=== PATIENT | female | born 1985 | race Caucasian/White ===

== ENCOUNTER 2016-11-17 19:56 | Inpatient (IN) | payer MEDICAID ==
[~2016-11-17] VITALS: Ht 167.6 cm; Wt 72.5 kg
[2016-11-17] MEDS ORDERED: ACETAMINOPHEN 325 MG TABLET ONE (20:54)
[2016-11-17] MEDS ORDERED: SODIUM CHLORIDE FLUSH 10ML SYR IVF ONE (21:00)
[2016-11-17] MEDS ORDERED: SODIUM CHLORIDE 0.9% 1,000ML IVBOLUS ONE ×2 (21:00→22:00)
[2016-11-17] MEDS ORDERED: ACETAMINOPHEN 325 MG TABLET PO ONE (21:00)
[2016-11-17 21:24] LABS: HEMOGLOBIN 10.1 g/dL (11.7-16.4)
[2016-11-17 21:38] LABS: ASPARTATE AMINO TRANSFERASE 22 U/L (15-37); BLOOD UREA NITROGEN 8 mg/dL (7-18)
[2016-11-17] MEDS ORDERED: CEFTRIAXONE PMX 1GM/50ML 50 ML ONE (21:41)
[2016-11-17] MEDS ORDERED: CEFTRIAXONE PMX 1GM/50ML 50 ML IV ONE (22:00)
[2016-11-17] MEDS ORDERED: AZITHROMYCIN 500 MG in SODIUM CHLORIDE 0.9% 250 ML IV ONE (22:00)
[2016-11-17] MEDS ORDERED: OMNIPAQUE 350 MG/ML, 100ML BOTTLE ONE (22:15)
[2016-11-18] MEDS ORDERED: BISACODYL 10 MG SUPP PR PRN (00:30)
[2016-11-18] MEDS ORDERED: ACETAMINOPHEN 325 MG TABLET PO PRN (00:30)
[2016-11-18] MEDS ORDERED: ONDANSETRON 2MG/ML, 2ML IVP PRN (00:30)
[2016-11-18] MEDS ORDERED: POLYETHYLENE GLYCOL 17 GM PACKET PO PRN (00:30)
[2016-11-18 01:21] LABS: HIV 1&2 ANTIBODY SCREEN Nonreactive (Nonreactive); HIV-1 p24 ANTIGEN Nonreactive (Nonreactive)
[2016-11-18] MEDS: HEPARIN 5,000 UNITS/ML, 1ML SQ SCH ×3 (01:23→16:44)
[2016-11-18] MEDS: KETOROLAC 30 MG/1 ML IVPush PRN ×3 (01:23→16:45)
[2016-11-18] MEDS: SODIUM CHLORIDE 0.9% 1,000 ML IV SCH ×3 (01:24→16:44)
[2016-11-18 01:40] VITALS: BP 105/70
[2016-11-18] MEDS: NICOTINE 21 MG/24 HR PATCH.TD24 TD SCH (02:18)
[2016-11-18 02:57] VITALS: BP 105/70
[2016-11-18 06:19] LABS: HEMOGLOBIN 9.2 g/dL (11.7-16.4)
[2016-11-18 06:34] LABS: ASPARTATE AMINO TRANSFERASE 18 U/L (15-37); BLOOD UREA NITROGEN 6 mg/dL (7-18)
[2016-11-18 06:39] VITALS: BP 107/71
[2016-11-18] MEDS ORDERED: SENNA/DOCUSATE TABLET PO SCH (09:00)
[2016-11-18 12:30] VITALS: BP 117/69
[2016-11-18 13:18] LABS: HEPATITIS C VIRUS ANTIBODY Reactive (Nonreactive)
[2016-11-18] MEDS: GUAIFENESIN/DM 200-20MG, 10ML UDC PO PRN (16:45)
[2016-11-18] MEDS: OXYcodone IR 5MG TABLET PO PRN (19:22)
[2016-11-18 20:00] VITALS: BP 130/82
[2016-11-18] MEDS ORDERED: CEFTRIAXONE PMX 1GM/50ML 50 ML IV SCH (22:00)
[2016-11-18] MEDS ORDERED: AZITHROMYCIN 500 MG in SODIUM CHLORIDE 0.9% 250 ML IV SCH (23:00)
[2016-11-19] MEDS: SODIUM CHLORIDE 0.9% 1,000 ML IV SCH (00:18)
[2016-11-19] MEDS: HEPARIN 5,000 UNITS/ML, 1ML SQ SCH (00:27)
[2016-11-19] MEDS: NICOTINE 21 MG/24 HR PATCH.TD24 TD SCH (00:27)
[2016-11-19] MEDS: GUAIFENESIN/DM 200-20MG, 10ML UDC PO PRN (00:28)
[2016-11-19] MEDS: KETOROLAC 30 MG/1 ML IVPush PRN ×2 (00:28→06:36)
[2016-11-19] MEDS: OXYcodone IR 5MG TABLET PO PRN (02:33)
[2016-11-19 02:36] VITALS: BP 120/72
[2016-11-19 05:10] LABS: HEMOGLOBIN 9.8 g/dL (11.7-16.4)
[2016-11-19 05:22] LABS: BLOOD UREA NITROGEN 2 mg/dL (7-18)
== END 2016-11-19 07:00 | disposition left against medical advice (07) | DRG 871 ==
LOC: ED 23:00 → EDIP 23:37 → 5SO 11-18 01:07
PROC: 0T9B70Z Drainage of Bladder with Drainage Device, Via Natural or Artificial Opening (ICD-10-PCS; principal; 2016-11-17)
DX: A41.9 Sepsis, unspecified organism (principal); E43 Unspecified severe protein-calorie malnutrition; J18.9 Pneumonia, unspecified organism; E87.1 Hypo-osmolality and hyponatremia; N10 Acute pyelonephritis; F43.10 Post-traumatic stress disorder, unspecified; J45.909 Unspecified asthma, uncomplicated; D50.9 Iron deficiency anemia, unspecified; Z91.5 Personal history of self-harm; Z82.49 Family history of ischemic heart disease and other diseases of the circulatory system; Z68.25 Body mass index [BMI] 25.0-25.9, adult; Z90.49 Acquired absence of other specified parts of digestive tract; Z59.0 Homelessness; Z80.8 Family history of malignant neoplasm of other organs or systems; R74.0 Nonspecific elevation of levels of transaminase and lactic acid dehydrogenase [LDH]; F41.9 Anxiety disorder, unspecified; F17.210 Nicotine dependence, cigarettes, uncomplicated; M32.9 Systemic lupus erythematosus, unspecified; N30.90 Cystitis, unspecified without hematuria
CPT/HCPCS: 36415; 71010; 71275; 74176; 80048; 80053; 80074; 80076; 81001; 82040; 82728; 83540; 83550; 83605; 84145; 84703; 85025; 86703; 87040; 87070; 87086; 87147; 87205; 87521; 87899; 93005; 96365; 96366; J0456; J0696; J1644; J1885; Q9967; G0435; J7030; J7050

== ENCOUNTER 2016-11-20 20:09 | Emergency (ER) | payer MEDICAID ==
[~2016-11-20] VITALS: Ht 167.6 cm; Wt 64.5 kg
[2016-11-20] MEDS ORDERED: ACETAMINOPHEN 325 MG TABLET ONE (20:34)
[2016-11-20] MEDS ORDERED: IBUPROFEN 200 MG TABLET ONE (20:34)
[2016-11-20] MEDS ORDERED: PIPERACILLIN/TAZO/PMX 3.375GM 50 ML IVPB ONE (21:00)
[2016-11-20] MEDS ORDERED: VANCOMYCIN PER PHARMACY IV ONE (21:00)
[2016-11-20] MEDS ORDERED: SODIUM CHLORIDE FLUSH 10ML SYR IVF ONE (21:00)
[2016-11-20] MEDS ORDERED: SODIUM CHLORIDE 0.9% 1,000ML IVBOLUS ONE (21:00)
[2016-11-20] MEDS ORDERED: ACETAMINOPHEN 325 MG TABLET PO ONE (21:00)
[2016-11-20] MEDS ORDERED: IBUPROFEN 200 MG TABLET PO ONE (21:00)
[2016-11-20] MEDS ORDERED: PIPERACILLIN/TAZO/PMX 3.375GM 50 ML ONE (21:04)
[2016-11-20 21:28] LABS: HEMOGLOBIN 10.2 g/dL (11.7-16.4)
[2016-11-20] MEDS ORDERED: PHARMACOKINETIC CONSULTATION MC ONE (21:30)
[2016-11-20 21:34] LABS: ASPARTATE AMINO TRANSFERASE 63 U/L (15-37); BLOOD UREA NITROGEN 6 mg/dL (7-18)
[2016-11-20 21:49] LABS: DIFF TOTAL CELLS COUNTED 100 CELL DIFF
[2016-11-20 21:53] LABS: ANISOCYTOSIS 1+; HYPOCHROMIA 1+; MICROCYTOSIS 1+
[2016-11-20 21:55] LABS: OVALOCYTES 1+
[2016-11-20 21:56] LABS: VERIFY COUNTS? YES
[2016-11-20] MEDS ORDERED: VANCOMYCIN 1,200 MG in SODIUM CHLORIDE 0.9% 250 ML IV ONE (22:00)
[2016-11-20 22:45] VITALS: BP 105/58
== END 2016-11-20 23:52 | disposition home or self-care (01) ==
LOC: ED 21:39
DX: J15.9 Unspecified bacterial pneumonia (principal); F11.20 Opioid dependence, uncomplicated; J45.909 Unspecified asthma, uncomplicated; Z90.49 Acquired absence of other specified parts of digestive tract; Z87.891 Personal history of nicotine dependence
CPT/HCPCS: 36415; 71010; 80053; 81003; 83605; 84145; 85025; 87040; 93005; 96365; 96366; 96368; 99285; J2543; J3370; J7030; J7050

== ENCOUNTER 2017-09-08 21:33 | Emergency (ER) | payer MEDICAID, OTHER ==
[~2017-09-08] VITALS: Ht 167.6 cm; Wt 84.2 kg
[2017-09-08 21:35] VITALS: BP 155/97
[2017-09-08 22:28] LABS: CULTURE INDICATED? YES; MICROSCOPIC INDICATED
== END 2017-09-08 22:51 | disposition home or self-care (01) ==
LOC: ED 22:45
DX: N30.00 Acute cystitis without hematuria (principal); J45.909 Unspecified asthma, uncomplicated; M32.9 Systemic lupus erythematosus, unspecified
CPT/HCPCS: 81001; 81025; 87077; 87086; 87186; 99284

== ENCOUNTER 2018-01-05 13:29 | Emergency (ER) | payer MEDICAID ==
[~2018-01-05] VITALS: Ht 167.6 cm; Wt 76.8 kg
[2018-01-05] MEDS ORDERED: SODIUM CHLORIDE FLUSH 10ML SYR IVF ONE (14:00)
[2018-01-05] MEDS ORDERED: SODIUM CHLORIDE 0.9% 1,000ML IVBOLUS ONE (14:00)
[2018-01-05] MEDS ORDERED: CEFTRIAXONE 1,000 MG IM ONE (14:00)
[2018-01-05] MEDS ORDERED: DIPHENHYDRAMINE 50 MG/ML, 1ML ONE (14:22)
[2018-01-05] MEDS ORDERED: METOCLOPRAMIDE 5 MG/ML, 2ML ONE (14:22)
[2018-01-05] MEDS ORDERED: CEFTRIAXONE 1,000 MG ONE (14:22)
[2018-01-05] MEDS ORDERED: METOCLOPRAMIDE 5 MG/ML, 2ML IVPush ONE (14:30)
[2018-01-05] MEDS ORDERED: DIPHENHYDRAMINE 50 MG/ML, 1ML IVPush ONE (14:30)
[2018-01-05 14:42] VITALS: BP 126/84
[2018-01-05] MEDS ORDERED: IPRA12.9 INH (14:42)
== END 2018-01-05 16:00 | disposition home or self-care (01) ==
LOC: ED 14:48
DX: N30.00 Acute cystitis without hematuria (principal)
CPT/HCPCS: 96361; 96372; 96374; 96375; 99284; J0696; J1200; J2765; J7030

== ENCOUNTER 2018-01-12 00:48 | Emergency (ER) | payer MEDICAID ==
[~2018-01-12] VITALS: Ht 167.6 cm; Wt 76.7 kg
[~2018-01-12 00:48] MED LIST: IPRA12.9 INH
[2018-01-12 00:50] VITALS: BP 136/89
== END 2018-01-12 01:07 | disposition left against medical advice (07) ==
LOC: ED 01:00
DX: M79.89 Other specified soft tissue disorders (principal); Z53.21 Procedure and treatment not carried out due to patient leaving prior to being seen by health care provider

== ENCOUNTER 2018-02-09 13:59 | Emergency (ER) | payer MEDICAID ==
[~2018-02-09] VITALS: Ht 167.6 cm; Wt 71.1 kg
[2018-02-09 14:01] VITALS: BP 120/79
== END 2018-02-09 14:44 | disposition home or self-care (01) ==
LOC: ED 14:38
DX: K02.9 Dental caries, unspecified (principal); K08.89 Other specified disorders of teeth and supporting structures; J45.909 Unspecified asthma, uncomplicated; F17.200 Nicotine dependence, unspecified, uncomplicated
CPT/HCPCS: 99283

== ENCOUNTER 2018-02-18 00:32 | Emergency (ER) | payer MEDICAID ==
[~2018-02-18] VITALS: Ht 167.6 cm; Wt 73.5 kg
[2018-02-18] MEDS ORDERED: PRED20TA PO (00:57)
[2018-02-18 01:05] LABS: HCG UR SG 1.035 (1.003-1.030); MICROSCOPIC AUTO
[2018-02-18 01:07] LABS: CULTURE INDICATED? YES
[2018-02-18 01:13] LABS: ALANINE AMINOTRANSFERASE 424 U/L (12-78); ALBUMIN 3.2 g/dL (3.4-5.0); ANION GAP 6 mmol/L (5-15); CALCIUM 8.2 mg/dL (8.5-10.1); CHLORIDE 110 mmol/L (98-107); CREATININE 0.49 mg/dL (0.55-1.02)
[2018-02-18 01:15] LABS: ALKALINE PHOSPHATASE 372 U/L (45-117); BILIRUBIN,TOTAL 0.3 mg/dL (0.2-1.0); TOTAL PROTEIN 7.2 g/dL (6.4-8.2)
[2018-02-18 01:16] LABS: BASOPHILS # (AUTO) 0.04 x10^3/uL (0-0.1); BASOPHILS % (AUTO) 1 % (0-1); EOSINOPHILS # (AUTO) 0.39 x10^3/uL (0-0.4); EOSINOPHILS % (AUTO) 6 % (1-7); LYMPHOCYTES # (AUTO) 2.92 x10^3/uL (1-3.4); LYMPHOCYTES % (AUTO) 43 % (22-44); MD NO; MEAN CORPUSCULAR HEMOGLOBIN 26.6 pg (27.0-34.8); MEAN CORPUSCULAR HGB CONC 32.7 g/dL (32.4-35.8); MEAN CORPUSCULAR VOLUME 81.2 fL (80-100); MONOCYTES # (AUTO) 0.63 x10^3/uL (0.2-0.8); MONOCYTES % (AUTO) 9 % (2-9); NEUTROPHILS # (AUTO) 2.79 x10^3/uL (1.8-6.8); NEUTROPHILS % (AUTO) 41 % (42-75); PLATELET COUNT 240 x10^3/uL (130-400); RED BLOOD COUNT 4.56 x10^6/uL (3.82-5.3); RED CELL DISTRIBUTION WIDTH 16.1 % (9.6-15.2)
[2018-02-18 02:43] VITALS: BP 111/73
== END 2018-02-18 02:45 | disposition home or self-care (01) ==
LOC: ED 01:03
DX: N30.00 Acute cystitis without hematuria (principal); J45.909 Unspecified asthma, uncomplicated; Z86.19 Personal history of other infectious and parasitic diseases; Z90.49 Acquired absence of other specified parts of digestive tract
CPT/HCPCS: 36415; 80053; 81001; 81025; 83690; 85025; 87077; 87086; 87186; 99284

== ENCOUNTER 2018-06-23 16:10 | Emergency (ER) | payer MEDICAID ==
[~2018-06-23] VITALS: Ht 167.6 cm; Wt 76.4 kg
[~2018-06-23 16:10] MED LIST changes: +PRED20TA PO
[2018-06-23] MEDS ORDERED: LIDOCAINE-MPF 1%, 5ML INFIL ONE (16:30)
[2018-06-23] MEDS ORDERED: LIDOCAINE-MPF 1%, 5ML ONE ×2 (16:38→18:21)
[2018-06-23] MEDS ORDERED: AMPICILLIN/SULBACTAM 1,500 MG IM ONE (17:00)
[2018-06-23 18:46] VITALS: BP 124/87
== END 2018-06-23 18:48 | disposition home or self-care (01) ==
LOC: ED 18:30
DX: L02.611 Cutaneous abscess of right foot (principal); F17.200 Nicotine dependence, unspecified, uncomplicated; F41.9 Anxiety disorder, unspecified; J45.909 Unspecified asthma, uncomplicated; Z86.19 Personal history of other infectious and parasitic diseases; Z87.19 Personal history of other diseases of the digestive system; Z87.39 Personal history of other diseases of the musculoskeletal system and connective tissue; Z87.440 Personal history of urinary (tract) infections
CPT/HCPCS: 73630; 96372; 99284; J0295

== ENCOUNTER 2018-07-14 05:47 | Emergency (ER) | payer MEDICAID ==
[~2018-07-14] VITALS: Ht 167.6 cm; Wt 71.0 kg
[2018-07-14 05:56] VITALS: BP 109/73
== END 2018-07-14 06:19 | disposition left against medical advice (07) ==
LOC: ED 05:50
DX: Z53.21 Procedure and treatment not carried out due to patient leaving prior to being seen by health care provider (principal)

== ENCOUNTER 2018-07-14 09:36 | Emergency (ER) | payer MEDICAID ==
[~2018-07-14] VITALS: Ht 167.6 cm; Wt 73.0 kg
[2018-07-14 09:42] VITALS: BP 106/67
[2018-07-14 11:14] LABS: MICROSCOPIC NOT IND
[2018-07-14 11:20] LABS: RAPID INFLUENZA A POSITIVE (Negative); RAPID INFLUENZA B Negative (Negative)
[2018-07-14 11:30] LABS: CULTURE INDICATED? NO
== END 2018-07-14 11:43 | disposition home or self-care (01) ==
LOC: ED 10:17
DX: J09.X2 Influenza due to identified novel influenza A virus with other respiratory manifestations (principal); J45.909 Unspecified asthma, uncomplicated
CPT/HCPCS: 71046; 81003; 87081; 87400; 87880; 99284

== ENCOUNTER 2018-07-20 23:20 | Emergency (ER) | payer MEDICAID ==
[~2018-07-20] VITALS: Ht 167.6 cm; Wt 74.0 kg
[2018-07-21 01:05] VITALS: BP 127/64
== END 2018-07-21 01:07 | disposition home or self-care (01) ==
LOC: ED 23:30
DX: J15.9 Unspecified bacterial pneumonia (principal); J45.909 Unspecified asthma, uncomplicated; F41.1 Generalized anxiety disorder; F11.10 Opioid abuse, uncomplicated; Z90.49 Acquired absence of other specified parts of digestive tract; Z90.89 Acquired absence of other organs; Z72.9 Problem related to lifestyle, unspecified; Z87.440 Personal history of urinary (tract) infections; Z87.19 Personal history of other diseases of the digestive system; Z87.09 Personal history of other diseases of the respiratory system; Z98.890 Other specified postprocedural states
CPT/HCPCS: 71045; 99283

== ENCOUNTER 2018-09-07 10:28 | Emergency (ER) | payer MEDICAID ==
[~2018-09-07] VITALS: Ht 167.6 cm; Wt 75.2 kg
[2018-09-07 10:33] VITALS: BP 120/80
== END 2018-09-07 11:10 | disposition home or self-care (01) ==
LOC: ED 11:03
DX: L02.415 Cutaneous abscess of right lower limb (principal); L02.416 Cutaneous abscess of left lower limb; F41.1 Generalized anxiety disorder; J45.909 Unspecified asthma, uncomplicated; Z72.9 Problem related to lifestyle, unspecified; Z90.89 Acquired absence of other organs; Z90.49 Acquired absence of other specified parts of digestive tract; Z98.890 Other specified postprocedural states; Z87.01 Personal history of pneumonia (recurrent); Z86.19 Personal history of other infectious and parasitic diseases
CPT/HCPCS: 99283

== ENCOUNTER 2018-09-10 00:03 | Emergency (ER) | payer MEDICAID ==
[~2018-09-10] VITALS: Ht 167.6 cm; Wt 68.0 kg
[2018-09-10 00:19] VITALS: BP 122/77
--- NOTE | 2018-09-10 00:22 | NUR ---
PT WANTS ANKLE ABSCESS RECHECKED. PT ALSO C/O COUGH per triage note
[2018-09-10] MEDS ORDERED: LIDOCAINE-MPF 1%, 5ML INFIL ONE (00:30)
[2018-09-10] MEDS ORDERED: LIDOCAINE-MPF 1%, 5ML ONE (00:32)
--- NOTE | 2018-09-10 01:51 | NUR ---
given taxi dequan pt was on w/c by boyfriend for dc home vss stable discussed regarding pt's heroin use pt understood
== END 2018-09-10 01:54 | disposition home or self-care (01) ==
LOC: ED 00:44
DX: L02.416 Cutaneous abscess of left lower limb (principal); F11.10 Opioid abuse, uncomplicated; F17.200 Nicotine dependence, unspecified, uncomplicated; J45.909 Unspecified asthma, uncomplicated
CPT/HCPCS: 10060; 99283

== ENCOUNTER 2018-09-13 07:50 | Emergency (ER) | payer MEDICAID ==
[~2018-09-13] VITALS: Ht 167.6 cm; Wt 75.0 kg
--- NOTE | 2018-09-13 08:27 | NUR ---
PT PRESENTED TO ED WITH COUGH, FLU-LIKE SYMPTOMS, CHEST CONGESTION X 1 WEEK. PT WITH HX:ASTHMA AND LUPUS. PT PLACED IN ROOM AND PLACED ON BP AND CONT. PULSE OXIMETER. ASSESSMENT COMPLETED. PA AT BEDSIDE
[2018-09-13] MEDS ORDERED: ALBUTEROL/IPRATROPIUM 2.5MG/0.5MG, 3 ML ONE (08:44)
--- NOTE | 2018-09-13 08:50 | NUR ---
REPORT GIVEN TO JENIFER ATKINSON
[2018-09-13] MEDS ORDERED: ALBUTEROL/IPRATROPIUM 2.5MG/0.5MG, 3 ML NPPB ONE (09:00)
[2018-09-13 09:39] VITALS: BP 113/82
--- NOTE | 2018-09-13 09:40 | NUR ---
Patient/Caregiver given discharge instructions and they have confirmed that they understand the instructions. Patient ambulatory with steady gait.
== END 2018-09-13 09:41 | disposition home or self-care (01) ==
LOC: ED 08:46
DX: J45.21 Mild intermittent asthma with (acute) exacerbation (principal); J00 Acute nasopharyngitis [common cold]; Z76.0 Encounter for issue of repeat prescription
CPT/HCPCS: 71046; 93005; 94640; 99283; J7512; J7620

== ENCOUNTER 2018-10-20 06:29 | Emergency (ER) | payer MEDICAID ==
--- NOTE | 2018-10-20 07:06 | NUR ---
REGISTERED IN ERROR
== END 2018-10-20 07:07 | disposition home or self-care (01) ==
LOC: ED 06:45
DX: Z02.9 Encounter for administrative examinations, unspecified (principal)

== ENCOUNTER 2018-10-28 13:18 | Emergency (ER) | payer MEDICAID ==
[~2018-10-28] VITALS: Ht 167.6 cm; Wt 74.3 kg
[2018-10-28] MEDS ORDERED: LIDOCAINE-MPF 1%, 5ML INFIL ONE (14:00)
[2018-10-28] MEDS ORDERED: LIDOCAINE-MPF 1%, 2ML ONE ×2 (14:03→14:31)
[2018-10-28] MEDS ORDERED: LIDOCAINE-MPF 1%, 5ML ONE ×2 (14:18→14:31)
[2018-10-28] MEDS ORDERED: CEFTRIAXONE 1,000 MG IM ONE (14:30)
[2018-10-28] MEDS ORDERED: CEFTRIAXONE 1,000 MG ONE (14:30)
[2018-10-28 14:43] VITALS: BP 109/77
== END 2018-10-28 14:46 | disposition home or self-care (01) ==
LOC: ED 14:39
DX: L02.211 Cutaneous abscess of abdominal wall (principal); L02.415 Cutaneous abscess of right lower limb; F11.10 Opioid abuse, uncomplicated
CPT/HCPCS: 10060; 96372; 99283; J0696

== ENCOUNTER 2018-11-19 01:36 | Emergency (ER) | payer MEDICAID ==
[~2018-11-19] VITALS: Ht 167.6 cm; Wt 73.8 kg
[2018-11-19 01:41] VITALS: BP 130/80
[2018-11-19] MEDS ORDERED: CEPHALEXIN 500 MG CAPSULE ONE (02:18)
[2018-11-19] MEDS ORDERED: SULFAMETH./TRIMETHOPRIM DS 800MG/160MG TABLET ONE (02:19)
[2018-11-19] MEDS ORDERED: SULFAMETH./TRIMETHOPRIM DS 800MG/160MG TABLET PO ONE (02:30)
[2018-11-19] MEDS ORDERED: CEPHALEXIN 500 MG CAPSULE PO ONE (02:30)
[2018-11-19 02:39] LABS: BASOPHILS # (AUTO) 0.01 x10^3/uL (0-0.1); BASOPHILS % (AUTO) 0 % (0-1); EOSINOPHILS # (AUTO) 0.22 x10^3/uL (0-0.4); EOSINOPHILS % (AUTO) 3 % (1-7); LYMPHOCYTES # (AUTO) 2.52 x10^3/uL (1-3.4); LYMPHOCYTES % (AUTO) 35 % (22-44); MD NO; MEAN CORPUSCULAR HGB CONC 32.3 g/dL (32.4-35.8); MEAN CORPUSCULAR VOLUME 77.4 fL (80-100); MONOCYTES # (AUTO) 0.53 x10^3/uL (0.2-0.8); MONOCYTES % (AUTO) 7 % (2-9); NEUTROPHILS # (AUTO) 3.85 x10^3/uL (1.8-6.8); NEUTROPHILS % (AUTO) 54 % (42-75); PLATELET COUNT 401 x10^3/uL (130-400); RED BLOOD COUNT 4.65 x10^6/uL (3.82-5.3); RED CELL DISTRIBUTION WIDTH 16.4 % (9.6-15.2)
[2018-11-19 02:48] LABS: ALANINE AMINOTRANSFERASE 74 U/L (12-78); ALBUMIN 3.5 g/dL (3.4-5.0); ANION GAP 5 mmol/L (5-15); CALCIUM 8.2 mg/dL (8.5-10.1); CHLORIDE 110 mmol/L (98-107); CREATININE 0.53 mg/dL (0.55-1.02)
[2018-11-19 02:52] LABS: ALKALINE PHOSPHATASE 278 U/L (45-117); BILIRUBIN,TOTAL 0.3 mg/dL (0.2-1.0); TOTAL PROTEIN 7.8 g/dL (6.4-8.2)
[2018-11-19] MEDS ORDERED: POTASSIUM CHLORIDE 20 MEQ TAB.ER.PRT ONE (03:23)
[2018-11-19] MEDS ORDERED: POTASSIUM CHLORIDE 20 MEQ TAB.ER.PRT PO ONE (03:30)
== END 2018-11-19 03:59 | disposition home or self-care (01) ==
LOC: ED 03:15
DX: L03.115 Cellulitis of right lower limb (principal); F11.10 Opioid abuse, uncomplicated; F17.210 Nicotine dependence, cigarettes, uncomplicated; J45.909 Unspecified asthma, uncomplicated; Z86.19 Personal history of other infectious and parasitic diseases
CPT/HCPCS: 36415; 80053; 83605; 84145; 84702; 85025; 87040; 99284

== ENCOUNTER 2018-12-05 21:05 | Emergency (ER) | payer MEDICAID ==
[~2018-12-05] VITALS: Ht 167.6 cm; Wt 74.3 kg
--- NOTE | 2018-12-05 23:02 | NUR ---
PT TO ROOM. [facility] PER OUR SECURITY PT WAS JUST REMOVED FROM FACILITY BECAUSE SHE WAS BRINGING IN HEROINE TO HER BROTHER. PT APPEARS TO BE UNDER THE INFLUENCE. EQUAL CHEST RISE AND NADN. GOOD CAP REFILL AND GOOD STRONG CENTRAL AND PERIPHERAL PULSES. PT HAS PIN POINT PUPILS AND IS CRYING SHE DID NOTHING WRONG.
[2018-12-05] MEDS ORDERED: CEFTRIAXONE 1,000 MG ONE (23:18)
[2018-12-05] MEDS ORDERED: LIDOCAINE-MPF 1%, 5ML ONE (23:18)
--- NOTE | 2018-12-05 23:23 | NUR ---
PT MEDICATED PER EMAR.
[2018-12-05] MEDS ORDERED: CEFTRIAXONE 1,000 MG IM ONE (23:30)
--- NOTE | 2018-12-05 23:50 | NUR ---
RECEIVED BS REPORT FROM CHINA RUGGIERO TO ASSUME PT. CARE.
[2018-12-05 23:58] LABS: BASOPHILS # (AUTO) 0.02 x10^3/uL (0-0.1); BASOPHILS % (AUTO) 0 % (0-1); EOSINOPHILS # (AUTO) 0.28 x10^3/uL (0-0.4); EOSINOPHILS % (AUTO) 4 % (1-7); LYMPHOCYTES # (AUTO) 2.38 x10^3/uL (1-3.4); LYMPHOCYTES % (AUTO) 30 % (22-44); MD NO; MEAN CORPUSCULAR HEMOGLOBIN 25.7 pg (27.0-34.8); MEAN CORPUSCULAR HGB CONC 32.9 g/dL (32.4-35.8); MEAN CORPUSCULAR VOLUME 78.2 fL (80-100); MONOCYTES # (AUTO) 0.77 x10^3/uL (0.2-0.8); MONOCYTES % (AUTO) 10 % (2-9); NEUTROPHILS # (AUTO) 4.61 x10^3/uL (1.8-6.8); NEUTROPHILS % (AUTO) 57 % (42-75); PLATELET COUNT 365 x10^3/uL (130-400); RED BLOOD COUNT 4.33 x10^6/uL (3.82-5.3); RED CELL DISTRIBUTION WIDTH 16.9 % (9.6-15.2)
[2018-12-06 00:10] LABS: ALANINE AMINOTRANSFERASE 211 U/L (12-78); ALBUMIN 3.2 g/dL (3.4-5.0); ANION GAP 3 mmol/L (5-15); CALCIUM 8.1 mg/dL (8.5-10.1); CHLORIDE 108 mmol/L (98-107); CREATININE 0.58 mg/dL (0.55-1.02)
[2018-12-06 00:13] LABS: ALKALINE PHOSPHATASE 369 U/L (45-117); BILIRUBIN,TOTAL 0.1 mg/dL (0.2-1.0)
--- NOTE | 2018-12-06 00:42 | NUR ---
PT. RESTING ON GURNEY WITH EYES CLOSED. ALL MONITORS IN PLACE. NADN. ALL SAFETY MEASURES OBSERVED. PT. UP FOR RECHECK BY KATALINA.
[2018-12-06 00:53] VITALS: BP 118/61
== END 2018-12-06 00:55 | disposition home or self-care (01) ==
LOC: ED 22:48
DX: L03.116 Cellulitis of left lower limb (principal); J45.909 Unspecified asthma, uncomplicated; F41.1 Generalized anxiety disorder; F17.210 Nicotine dependence, cigarettes, uncomplicated; Z90.89 Acquired absence of other organs; Z90.49 Acquired absence of other specified parts of digestive tract
CPT/HCPCS: 36415; 80053; 80307; 85025; 96372; 99283; J0696

== ENCOUNTER 2019-09-09 07:57 | Emergency (ER) | payer SELFPAY ==
[~2019-09-09] VITALS: Ht 167.6 cm; Wt 80.0 kg
[2019-09-09 08:03] VITALS: BP 136/101
--- NOTE | 2019-09-09 08:08 | NUR ---
jeni. report received from ems. pt c/o n/v/yari in this morning. +etoh/meth. last use was last night. denies pain. hx hep c. pt's aox4. resps even and unlabored. bp/spo2 monitors in place. call light within reach. edmd at bedside to evaluate at this time.
[2019-09-09 08:27] LABS: BASOPHILS # (AUTO) 0.01 x10^3/uL (0-0.1); BASOPHILS % (AUTO) 0 % (0-1); EOSINOPHILS # (AUTO) 0.03 x10^3/uL (0-0.4); EOSINOPHILS % (AUTO) 0 % (1-7); LYMPHOCYTES # (AUTO) 1.77 x10^3/uL (1-3.4); LYMPHOCYTES % (AUTO) 22 % (22-44); MD NO; MEAN CORPUSCULAR HEMOGLOBIN 28.7 pg (27.0-34.8); MEAN CORPUSCULAR HGB CONC 32.9 g/dL (32.4-35.8); MEAN CORPUSCULAR VOLUME 87.2 fL (80-100); MEAN PLATELET VOLUME 7.8 fL (7.4-10.4); MONOCYTES # (AUTO) 0.64 x10^3/uL (0.2-0.8); MONOCYTES % (AUTO) 8 % (2-9); NEUTROPHILS # (AUTO) 5.46 x10^3/uL (1.8-6.8); NEUTROPHILS % (AUTO) 69 % (42-75); PLATELET COUNT 323 x10^3/uL (130-400); RED BLOOD COUNT 4.35 x10^6/uL (3.82-5.3); RED CELL DISTRIBUTION WIDTH 13.6 % (9.6-15.2)
[2019-09-09 08:39] LABS: ANION GAP 9 mmol/L (5-15); CALCIUM 8.6 mg/dL (8.5-10.1); CHLORIDE 105 mmol/L (98-107)
[2019-09-09 08:40] LABS: CREATININE 0.63 mg/dL (0.55-1.02)
[2019-09-09] MEDS ORDERED: POTASSIUM CHLORIDE 20 MEQ TAB.ER.PRT ONE (08:49)
--- NOTE | 2019-09-09 08:59 | NUR ---
Patient/Caregiver given discharge instructions and they have confirmed that they understand the instructions. Patient ambulatory with steady gait.
[2019-09-09] MEDS ORDERED: POTASSIUM CHLORIDE 20 MEQ TAB.ER.PRT PO ONE (09:00)
== END 2019-09-09 09:01 | disposition home or self-care (01) ==
LOC: EDBD 07:57 → ED 08:40
DX: F15.10 Other stimulant abuse, uncomplicated (principal); F10.10 Alcohol abuse, uncomplicated; R11.2 Nausea with vomiting, unspecified; M79.10 Myalgia, unspecified site; Z90.49 Acquired absence of other specified parts of digestive tract; Z90.89 Acquired absence of other organs; Y90.9 Presence of alcohol in blood, level not specified
CPT/HCPCS: 36415; 80048; 80307; 83735; 85025; 99283

== ENCOUNTER 2019-09-20 20:18 | Emergency (ER) | payer MEDICAID ==
[~2019-09-20] VITALS: Ht 167.6 cm; Wt 87.6 kg
[2019-09-20 21:33] VITALS: BP 116/79
== END 2019-09-20 21:35 | disposition home or self-care (01) ==
LOC: ED 21:20
DX: J41.1 Mucopurulent chronic bronchitis (principal); Z90.89 Acquired absence of other organs; Z90.49 Acquired absence of other specified parts of digestive tract; F17.200 Nicotine dependence, unspecified, uncomplicated
CPT/HCPCS: 71045; 99283

== ENCOUNTER 2019-10-05 16:34 | Emergency (ER) | payer MEDICAID, OTHER ==
[~2019-10-05] VITALS: Ht 167.6 cm; Wt 83.0 kg
[2019-10-05] MEDS ORDERED: FAMOTIDINE 20 MG TABLET PO ONE (17:00)
--- NOTE | 2019-10-05 17:24 | NUR ---
THE PT. WAS MEDICATED ORDERED. PT.'S HANDS REMAIN RED.
[2019-10-05] MEDS ORDERED: FAMOTIDINE 20 MG TABLET ONE (17:25)
[2019-10-05 17:39] VITALS: BP 131/85
--- NOTE | 2019-10-05 17:39 | NUR ---
Patient/Caregiver given discharge instructions and they have confirmed that they understand the instructions. Patient ambulatory with steady gait.
== END 2019-10-05 17:43 | disposition home or self-care (01) ==
LOC: ED 17:42
DX: L24.5 Irritant contact dermatitis due to other chemical products (principal); J45.909 Unspecified asthma, uncomplicated
CPT/HCPCS: 99284; J7512; Q0177

== ENCOUNTER 2019-10-14 00:58 | Emergency (ER) | payer MEDICAID, OTHER ==
[~2019-10-14] VITALS: Ht 167.6 cm; Wt 83.1 kg
[2019-10-14 01:01] VITALS: BP 132/86
--- NOTE | 2019-10-14 04:04 | NUR ---
NIL X 1 WHEN CALLED FOR ROOM.
--- NOTE | 2019-10-14 04:18 | NUR ---
NIL X 2 WHEN CALLED FOR ROOM.
--- NOTE | 2019-10-14 04:32 | NUR ---
NIL X 3 WHEN CALLED FOR ROOM
== END 2019-10-14 04:33 | disposition left against medical advice (07) ==
LOC: ED 04:28
DX: M79.621 Pain in right upper arm (principal); Z53.21 Procedure and treatment not carried out due to patient leaving prior to being seen by health care provider

== ENCOUNTER 2019-10-14 18:06 | Emergency (ER) | payer MEDICAID ==
[~2019-10-14] VITALS: Ht 167.6 cm; Wt 83.4 kg
[2019-10-14] MEDS ORDERED: LIDOCAINE-MPF 1%, 5ML ONE (18:26)
--- NOTE | 2019-10-14 18:34 | NUR ---
THIS IS A 34 YO FEMALE WHO PRESENTS TO THE ER C/O ABSCESS TO RIGHT UPPER ARM X "A FEW DAYS" AFTER "INJECTING HEROIN". 3 X 4 CM ROUND HARD ABSCESS WITH ERYTHEMA NOTED TO RIGHT UPPER ARM. NO STREAKING NOTED. OTHER THAN ABSCESS, SKIN PWD. PT AO X 4. RESP EVEN AND UNLABORED. PT ON CONT BP AND O2 MONITORS. ISABEL MILLER AND KATALINA ROCHA WERE AT BEDSIDE FOR EVAL.
--- NOTE | 2019-10-14 18:49 | NUR ---
REPORT TO CHINA MICHELLE AND CHINA TOMAS WHO ASSUMED CARE OF PT. ISABEL MILLER AWARE SUPPLIES ARE AT BEDSIDE. CALL LIGHT WITHIN REACH. WILL CONT TO MONITOR PT.
[2019-10-14] MEDS ORDERED: NEOSPORIN OINT. PKT 1 PACKET ONE (18:57)
[2019-10-14 19:14] VITALS: BP 111/77
--- NOTE | 2019-10-14 19:15 | NUR ---
Patient discharge instructions given. All questions and concerns addressed. Patient given a boat of 4x4s and tape per ERP. Patient ambulatory with a steady gait. Belongings with patient.
== END 2019-10-14 19:17 | disposition home or self-care (01) ==
LOC: ED 18:25
DX: L03.113 Cellulitis of right upper limb (principal); F11.10 Opioid abuse, uncomplicated; F17.210 Nicotine dependence, cigarettes, uncomplicated; J45.909 Unspecified asthma, uncomplicated; Z90.89 Acquired absence of other organs; Z90.49 Acquired absence of other specified parts of digestive tract
CPT/HCPCS: 10060; 99283; 99406

== ENCOUNTER 2019-10-16 05:56 | Emergency (ER) | payer MEDICAID ==
[~2019-10-16] VITALS: Ht 167.6 cm; Wt 83.6 kg
[2019-10-16 05:57] VITALS: BP 125/81
[2019-10-16] MEDS ORDERED: IBUPROFEN 600 MG TABLET ONE (06:26)
[2019-10-16] MEDS ORDERED: IBUPROFEN 200 MG TABLET PO ONE (06:30)
--- NOTE | 2019-10-16 06:30 | NUR ---
Discharge instructions given. All questions and concerns addressed. Patient ambulatory with a steady gait. Belongings with patient.
== END 2019-10-16 06:32 | disposition home or self-care (01) ==
LOC: ED 06:26
DX: L02.413 Cutaneous abscess of right upper limb (principal)
CPT/HCPCS: 99282

== ENCOUNTER 2019-11-07 08:44 | Emergency (ER) | payer MEDICAID ==
[~2019-11-07] VITALS: Ht 167.6 cm; Wt 80.5 kg
[2019-11-07 08:57] VITALS: BP 149/93
== END 2019-11-07 10:30 | disposition home or self-care (01) ==
LOC: ED 09:05
DX: B34.9 Viral infection, unspecified (principal); F17.210 Nicotine dependence, cigarettes, uncomplicated
CPT/HCPCS: 71045; 99283

== ENCOUNTER 2019-12-19 18:06 | Emergency (ER) | payer MEDICAID ==
[~2019-12-19] VITALS: Ht 167.6 cm; Wt 83.3 kg
--- NOTE | 2019-12-19 18:14 | NUR ---
PT IN LAVATORY AT THIS TIME.
--- NOTE | 2019-12-19 18:28 | NUR ---
PT AMBULATED BACK TO ROOM, NAD, RESP WNL, VSS, CALL LIGHT ON LAP, MAEx4, FCS NO SOB NOTED, PT SPEECH IS SLIGHTLY RUSHED. SETH STEELE AT BS FOR EVAL AND TO DISCUSS POC. WCBALDEMAR.
[2019-12-19] MEDS ORDERED: CEFTRIAXONE 1,000 MG ONE (18:44)
[2019-12-19] MEDS ORDERED: LIDOCAINE-MPF 1%, 5ML ONE (18:46)
[2019-12-19] MEDS ORDERED: CEFTRIAXONE 1,000 MG IM ONE (19:00)
[2019-12-19 19:37] VITALS: BP 132/81
--- NOTE | 2019-12-19 19:37 | NUR ---
Gave Pt her DC and Rx instructions. Pt verbalized understanding.
== END 2019-12-19 19:39 | disposition home or self-care (01) ==
LOC: ED 19:37
DX: L03.116 Cellulitis of left lower limb (principal); M32.9 Systemic lupus erythematosus, unspecified; M19.90 Unspecified osteoarthritis, unspecified site; J45.909 Unspecified asthma, uncomplicated; F17.200 Nicotine dependence, unspecified, uncomplicated; Z90.49 Acquired absence of other specified parts of digestive tract; Z90.89 Acquired absence of other organs
CPT/HCPCS: 96372; 99284; J0696

== ENCOUNTER 2020-01-03 07:19 | Emergency (ER) | payer MEDICAID ==
[~2020-01-03] VITALS: Ht 167.6 cm; Wt 82.6 kg
[2020-01-03 07:23] VITALS: BP 141/90
--- NOTE | 2020-01-03 07:33 | NUR ---
ERYTHEMA AND INDURATION OF RIGHT PROXIMAL CALF W PAIN. MD AT BEDSIDE.
[2020-01-03] MEDS ORDERED: HYDROmorphone 1 MG/ML, 1ML INJ ONE (07:46)
[2020-01-03] MEDS ORDERED: CLINDAMYCIN 150 MG/ML, 6ML ONE (07:55)
[2020-01-03] MEDS ORDERED: CLINDAMYCIN 150 MG/ML, 6ML IM ONE (08:00)
[2020-01-03] MEDS ORDERED: HYDROmorphone 1 MG/ML, 1ML INJ IM ONE (08:00)
--- NOTE | 2020-01-03 08:45 | NUR ---
PT BACK FROM CT. MEDICATED FOR PAIN PRIOR.
[2020-01-03 09:15] LABS: BASOPHILS # (AUTO) 0.04 x10^3/uL (0-0.1); BASOPHILS % (AUTO) 0 % (0-1); EOSINOPHILS # (AUTO) 0.34 x10^3/uL (0-0.4); EOSINOPHILS % (AUTO) 4 % (1-7); LYMPHOCYTES # (AUTO) 2.05 x10^3/uL (1-3.4); LYMPHOCYTES % (AUTO) 23 % (22-44); MD NO; MEAN CORPUSCULAR HEMOGLOBIN 26.4 pg (27.0-34.8); MEAN CORPUSCULAR HGB CONC 32.5 g/dL (32.4-35.8); MEAN PLATELET VOLUME 8.2 fL (7.4-10.4); MONOCYTES # (AUTO) 0.51 x10^3/uL (0.2-0.8); MONOCYTES % (AUTO) 6 % (2-9); NEUTROPHILS # (AUTO) 6.19 x10^3/uL (1.8-6.8); NEUTROPHILS % (AUTO) 68 % (42-75); PLATELET COUNT 448 x10^3/uL (130-400); RED BLOOD COUNT 4.45 x10^6/uL (3.82-5.3); RED CELL DISTRIBUTION WIDTH 15.9 % (9.6-15.2)
--- NOTE | 2020-01-03 09:36 | NUR ---
Patient/Caregiver given discharge instructions and they have confirmed that they understand the instructions. Patient ambulatory with steady gait.
== END 2020-01-03 09:37 | disposition home or self-care (01) ==
LOC: ED 08:04
DX: L03.115 Cellulitis of right lower limb (principal); J45.909 Unspecified asthma, uncomplicated; F17.200 Nicotine dependence, unspecified, uncomplicated; Z90.89 Acquired absence of other organs; Z90.710 Acquired absence of both cervix and uterus
CPT/HCPCS: 36415; 73700; 85025; 96372; 99284; J1170; S0077

== ENCOUNTER 2020-01-06 17:16 | Emergency (ER) | payer MEDICAID ==
[~2020-01-06] VITALS: Ht 167.6 cm; Wt 83.5 kg
[2020-01-06 17:31] VITALS: BP 111/79
--- NOTE | 2020-01-06 18:02 | NUR ---
PT ON CLINDAMYCIN FOR ABCESS RIGHT LEG AND MOUTH. PT STATES LEG GETTING BETTER BUT JAW CONTINUES TO HURT. MD AT BEDSIDE EXAMINING PT
== END 2020-01-06 18:17 | disposition home or self-care (01) ==
LOC: ED 18:10
DX: K04.7 Periapical abscess without sinus (principal); K08.89 Other specified disorders of teeth and supporting structures; J45.909 Unspecified asthma, uncomplicated; M19.90 Unspecified osteoarthritis, unspecified site; M32.9 Systemic lupus erythematosus, unspecified; F17.200 Nicotine dependence, unspecified, uncomplicated
CPT/HCPCS: 99281

== ENCOUNTER 2020-01-15 03:26 | Emergency (ER) | payer MEDICAID ==
[~2020-01-15] VITALS: Ht 167.6 cm; Wt 84.3 kg
[2020-01-15 03:33] VITALS: BP 127/88
[2020-01-15] MEDS ORDERED: LIDOCAINE-MPF 1%, 5ML ONE (03:55)
[2020-01-15] MEDS ORDERED: LIDOCAINE-MPF 1%, 5ML INFIL ONE (04:00)
== END 2020-01-15 04:18 | disposition home or self-care (01) ==
LOC: ED 04:14
DX: L03.116 Cellulitis of left lower limb (principal); L02.416 Cutaneous abscess of left lower limb; M79.662 Pain in left lower leg; J45.909 Unspecified asthma, uncomplicated; F17.210 Nicotine dependence, cigarettes, uncomplicated; Z72.9 Problem related to lifestyle, unspecified; Z90.49 Acquired absence of other specified parts of digestive tract
CPT/HCPCS: 10060; 99281; 99282; 99406

== ENCOUNTER 2020-01-25 23:34 | Emergency (ER) | payer MEDICAID ==
[~2020-01-25] VITALS: Ht 167.6 cm; Wt 83.0 kg
[2020-01-25 23:40] VITALS: BP 134/80
--- NOTE | 2020-01-26 00:44 | NUR ---
no answer when called for room, next pt roomed.
== END 2020-01-26 01:23 ==
LOC: ED 01-26 01:12
DX: L02.415 Cutaneous abscess of right lower limb (principal); Z53.21 Procedure and treatment not carried out due to patient leaving prior to being seen by health care provider

== ENCOUNTER 2020-03-04 03:56 | Emergency (ER) | payer MEDICAID ==
[~2020-03-04] VITALS: Ht 162.6 cm; Wt 75.0 kg
--- NOTE | 2020-03-04 04:12 | NUR ---
THIS PT WAS JUST EVICTED FROM HER PLACE, AND HAS NO WHERE TO STAY. SHE CALLED EMS FOR BACK PAIN, PER EMS PT STATES HER URINE IS DARK AND HER PAIN FEELS THE SAME WHEN SHE HAD A KIDNEY STONE. PT REPORTS MULTIPLE ABCESSES ON LEGS FROM HEROIN ABUSE. LEGS APPEAR TO HAVE MULTIPLE BRUISING BUT NO DRAINAGE. PT CONNECTED TO BP AND O2 MONITORS, SIDE RAILS UP, CALL LIGHT IN REACH, PROVIDED WITH BLANKET AND SOCKS.
[2020-03-04] MEDS ORDERED: CEPHALEXIN 500 MG CAPSULE ONE (04:29)
[2020-03-04] MEDS ORDERED: SULFAMETH./TRIMETHOPRIM DS 800MG/160MG TABLET ONE (04:29)
[2020-03-04] MEDS ORDERED: CEPHALEXIN 500 MG CAPSULE PO ONE (04:30)
[2020-03-04] MEDS ORDERED: SULFAMETH./TRIMETHOPRIM DS 800MG/160MG TABLET PO ONE (04:30)
--- NOTE | 2020-03-04 04:38 | NUR ---
PT AMBULATORY TO BATHROOM, STEADY GAIT.
--- NOTE | 2020-03-04 04:42 | NUR ---
PT PROVIDED WITH SUBSTANCE ABUSE RESOURCES AT HER REQUEST AND SNF/HOUSING RESOURCES. PT ALSO ASKING FOR FOOD, SNACKS PROVIDED.
[2020-03-04 04:49] LABS: HCG UR SG 1.022 (1.003-1.030)
[2020-03-04 04:50] LABS: MICROSCOPIC INDICATED
[2020-03-04 05:13] VITALS: BP 114/78
== END 2020-03-04 05:29 | disposition home or self-care (01) ==
LOC: ED 04:24
DX: L02.416 Cutaneous abscess of left lower limb (principal); L02.415 Cutaneous abscess of right lower limb; F11.129 Opioid abuse with intoxication, unspecified; M54.5 Low back pain; R30.0 Dysuria; Z72.9 Problem related to lifestyle, unspecified; M32.9 Systemic lupus erythematosus, unspecified; Z90.49 Acquired absence of other specified parts of digestive tract; Z90.89 Acquired absence of other organs
CPT/HCPCS: 81001; 81025; 87077; 87086; 87186; 99283

== ENCOUNTER 2020-04-19 04:33 | Emergency (ER) | payer MEDICAID ==
[~2020-04-19] VITALS: Ht 167.6 cm; Wt 81.8 kg
--- NOTE | 2020-04-19 05:09 | NUR ---
pt came into ed for numerous abcesses on skin. states pain is 10/10 with abcesses "especially when i move around." pt denies loss of sensation, cms intact. using heroin. NAD, VSS. given warm blankets for comfort. wctm. pt placed on spo2/bp monitoring.
[2020-04-19] MEDS ORDERED: LIDOCAINE-MPF 1%, 5ML ONE (05:28)
[2020-04-19] MEDS ORDERED: LIDOCAINE-MPF 1%, 5ML INFIL ONE (05:30)
[2020-04-19 05:50] VITALS: BP 126/82
--- NOTE | 2020-04-19 06:07 | NUR ---
pt resting on gulola, nad, appears comfortable, denies additional needs at this time. significant other at bs. wctm. bandaging and then dc
[2020-04-19] MEDS ORDERED: HYDROcodone/APAP 5/325 TABLET ONE (06:16)
--- NOTE | 2020-04-19 06:22 | NUR ---
Patient given discharge instructions and they have confirmed that they understand the instructions. Patient ambulatory with steady gait. NAD, given sprite and ice. denies additional needs at this time. no pt belongings left in room after dc.
[2020-04-19] MEDS ORDERED: HYDROcodone/APAP 5/325 TABLET PO ONE (06:30)
== END 2020-04-19 06:24 | disposition home or self-care (01) ==
LOC: ED 05:03
DX: L02.416 Cutaneous abscess of left lower limb (principal); F11.129 Opioid abuse with intoxication, unspecified; J45.909 Unspecified asthma, uncomplicated; Z90.49 Acquired absence of other specified parts of digestive tract; Z86.19 Personal history of other infectious and parasitic diseases
CPT/HCPCS: 10060; 99283

== ENCOUNTER 2020-05-09 05:05 | Emergency (ER) | payer MEDICAID ==
[~2020-05-09] VITALS: Ht 167.6 cm; Wt 68.1 kg
[2020-05-09 05:16] VITALS: BP 128/77
--- NOTE | 2020-05-09 05:20 | NUR ---
35/F. Arrived via EMS. Pt is withdrawaling from heroin and ETOH. Last used and drank yesterday. VS stable. Pt experiencing pain all over. Agitated. Pt expressing that she wants to quit.
[2020-05-09] MEDS ORDERED: PROMETHAZINE 25 MG/ML, 1ML ONE (05:25)
[2020-05-09] MEDS ORDERED: LIDOCAINE-MPF 1%, 2ML ONE (05:25)
[2020-05-09] MEDS ORDERED: DIPHENHYDRAMINE 50 MG/ML, 1ML ONE (05:26)
[2020-05-09] MEDS ORDERED: CEPHALEXIN 500 MG CAPSULE PO ONE (05:30)
[2020-05-09] MEDS ORDERED: DIPHENHYDRAMINE 50 MG/ML, 1ML IM ONE (05:30)
[2020-05-09] MEDS ORDERED: PROMETHAZINE 25 MG/ML, 1ML IM ONE (05:30)
[2020-05-09] MEDS ORDERED: SULFAMETH./TRIMETHOPRIM DS 800MG/160MG TABLET PO ONE (05:30)
[2020-05-09] MEDS ORDERED: LIDOCAINE-MPF 1%, 5ML INFIL ONE (05:30)
[2020-05-09] MEDS ORDERED: CEPHALEXIN 500 MG CAPSULE ONE ×2 (05:39→05:42)
[2020-05-09] MEDS ORDERED: SULFAMETH./TRIMETHOPRIM DS 800MG/160MG TABLET ONE (05:39)
[2020-05-09] MEDS ORDERED: ACETAMINOPHEN 325 MG TABLET ONE (06:30)
[2020-05-09] MEDS ORDERED: IBUPROFEN 200 MG TABLET ONE (06:30)
[2020-05-09] MEDS ORDERED: ACETAMINOPHEN 325 MG TABLET PO ONE (06:30)
[2020-05-09] MEDS ORDERED: IBUPROFEN 200 MG TABLET PO ONE (06:30)
--- NOTE | 2020-05-09 06:45 | NUR ---
Pt given a taxi vouchure for safe discharge.
== END 2020-05-09 06:46 | disposition home or self-care (01) ==
LOC: ED 05:13
DX: L02.414 Cutaneous abscess of left upper limb (principal); L02.416 Cutaneous abscess of left lower limb; F11.23 Opioid dependence with withdrawal; F15.10 Other stimulant abuse, uncomplicated; J45.909 Unspecified asthma, uncomplicated
CPT/HCPCS: 10061; 96372; 99284; J1200; J2550